=== PATIENT | male | born 1985 | race Caucasian/White ===

== ENCOUNTER 2023-10-01 15:34 | Outpatient (CLI) | payer OTHER | END 2023-10-01 15:35 | disposition home or self-care (01) | LOC: CSHMRI 15:34 | PROVIDERS: ATTEND Family Medicine | DX: S43.92XD Sprain of unspecified parts of left shoulder girdle, subsequent encounter (principal); M25.512 Pain in left shoulder; S46.012A Strain of muscle(s) and tendon(s) of the rotator cuff of left shoulder, initial encounter; M67.814 Other specified disorders of tendon, left shoulder; M19.012 Primary osteoarthritis, left shoulder; M94.8X1 Other specified disorders of cartilage, shoulder; M25.412 Effusion, left shoulder ==